=== PATIENT | male | born 1975 | race Asian ===

== ENCOUNTER 2020-11-06 09:59 | Emergency (ER) | payer OTHER ==
[~2020-11-06] VITALS: Ht 162.6 cm; Wt 68.2 kg
[2020-11-06 10:09] VITALS: BP 122/74
== END 2020-11-06 12:05 | disposition home or self-care (01) ==
LOC: EMS 10:05
DX: M79.10 Myalgia, unspecified site (principal); Z20.828 Contact with and (suspected) exposure to other viral communicable diseases